=== PATIENT | female | born 1995 | race Caucasian/White ===

== ENCOUNTER 2017-01-21 19:05 | Emergency (ER) | payer MEDICAID ==
[~2017-01-21] VITALS: Ht 170.2 cm; Wt 76.2 kg
[2017-01-21 19:37] VITALS: BP 124/82
--- NOTE | 2017-01-21 21:24 | NUR ---
TO ER OF1
--- NOTE | 2017-01-21 21:34 | NUR ---
EPatient being evaluated by physician.
[2017-01-21] MEDS ORDERED: KETOROLAC 30 MG/ML VIAL IM ONE (21:40)
[2017-01-21] MEDS ORDERED: DIAZEPAM 5 MG TAB PO ONE (21:40)
[2017-01-21 23:55] VITALS: BP 135/71
--- NOTE | 2017-01-21 23:55 | NUR ---
Patient discharged with v/s stable. Written and verbal after care instructions given and explained. Patient alert, oriented and verbalized understanding of instructions. Ambulatory with steady gait. All questions addressed prior to discharge. ID band removed. Patient advised to follow up with PMD. Rx of Fiorcet given. Patient educated on indication of medication including possible reaction and side effects. Opportunity to ask questions provided and answered.
== END 2017-01-21 23:55 | disposition home or self-care (01) ==
LOC: MED 19:05
DX: R51 Headache (principal); Z90.89 Acquired absence of other organs
CPT/HCPCS: 70450; 81002; 81025; 96372; 99284; J1885